=== PATIENT | male | born 1945 | race Two or more races ===

== ENCOUNTER 2021-11-11 19:41 | Inpatient (IN) | payer MEDICARE, OTHER ==
[~2021-11-11] VITALS: Ht 177.8 cm; Wt 88.6 kg
--- NOTE | 2021-11-11 19:55 | NUR ---
BETH Marroquin [place] [facility] [place] C/O INCREASED WEAKNESS X 1 DAY. PLACED ON BED, AWAKE ALERT RESPONDING TO VERBAL STIMULI, BREATHING EVEN AND UNLABORED SATURATING AT 96% RA.
--- NOTE | 2021-11-11 20:10 | NUR ---
BLOOD DRAWN AND SENT TO LAB
--- NOTE | 2021-11-11 20:13 | NUR ---
[facility]
[2021-11-11 20:52] LABS: BASOPHILS % (AUTO) 0.1 % (0.0-2.0); HEMATOCRIT 36 % (39-51); HEMOGLOBIN 12.4 g/dL (13.5-17.5); LYMPHOCYTES # (AUTO) 0.6 K/uL (0.8-4.8); LYMPHOCYTES % (AUTO) 2.6 % (20.0-44.0); MEAN CORPUSCULAR HGB CONC 34 g/dl (31.0-36.0); MEAN CORPUSCULAR VOLUME 89 fL (80-96); MONOCYTES # (AUTO) 2.2 K/uL (0.1-1.30); MONOCYTES % (AUTO) 10.1 % (2.0-12.0); NEUTROPHILS % (AUTO) 87.2 % (43.0-81.0); PLATELET COUNT (AUTO) 207 K/uL (150-450); RED BLOOD CELL COUNT(AUTO) 4.07 MIL/uL (4.5-6.0); WHITE BLOOD COUNT (AUTO) 21.8 K/uL (4.3-11.0)
--- NOTE | 2021-11-11 20:53 | NUR ---
SWAB FOR COVID19 AND URINE SAMPLE SENT TO LAB
[2021-11-11 21:23] LABS: ALANINE AMINOTRANSFERASE 701 U/L (12-78); ALBUMIN 3.1 g/dL (3.4-5.0); ALKALINE PHOSPHATASE 520 U/L (46-116); ASPARTATE AMINOTRANSFERASE 433 U/L (15-37); BILIRUBIN,DIRECT 2.6 mg/dL (0.0-0.2); BILIRUBIN,TOTAL 3.3 mg/dL (0.2-1.0); CALCIUM, SERUM 9.3 mg/dL (8.5-10.1); CARBON DIOXIDE 26 mmol/L (21-32); CHLORIDE 102 mmol/L (98-107); CREATININE 1.2 mg/dL (0.6-1.3); GLUCOSE 202 mg/dL (74-106); POTASSIUM 3.7 mmol/L (3.5-5.1); SODIUM SERUM 138 mmol/L (136-145); TOTAL PROTEIN, SERUM 7.6 g/dL (6.4-8.2); UREA NITROGEN, BLOOD 30 mg/dL (7-18)
[2021-11-11 21:25] LABS: SERUM AMMONIA 26 umol/L (11-32)
[2021-11-11 21:31] LABS: THYROID STIMULATING HORMONE 2.755 uIU/mL (0.358-3.74)
[2021-11-11] MEDS ORDERED: PIPERACILLIN /TAZOBACTAM 3.375 G VIAL IV ONE (21:59)
[2021-11-11] MEDS ORDERED: VANCOMYCIN 1 GM VIAL ONE (21:59)
[2021-11-11] MEDS ORDERED: PIPERACILLIN /TAZOBACTAM 3.375 G in IV D5W 50 ML IV ONE (22:00)
[2021-11-11] MEDS ORDERED: IV NS 0.9% 1,000 ML BAG IV ONE (22:00)
[2021-11-11] MEDS ORDERED: VANCOMYCIN 1 GM in IV D5W 250 ML IV ONE (22:00)
--- NOTE | 2021-11-11 22:06 | NUR ---
PATIENT TAKEN TO CT FOR ABDOMEN AND PELVIS VIA [facility]
[2021-11-11] MEDS ORDERED: ONDANSETRON HCL/PF 4 MG/2 ML VIAL IVP PRN (22:30)
[2021-11-11] MEDS ORDERED: Z GUARD REMEDY 4 OZ OINT TP PRN (22:30)
[2021-11-11] MEDS ORDERED: IV NS 0.9% 1,000 ML IV ONE (22:30)
[2021-11-11] MEDS ORDERED: MAGNESIUM HYDROXIDE 30 ML UDC PO PRN (22:30)
[2021-11-11] MEDS ORDERED: MAG HYDROX/AL HYDROX/SIMETH 30 ML UDC PO PRN (22:30)
[2021-11-11] MEDS ORDERED: ZOLPIDEM TARTRATE 5 MG TABLET PO PRN (22:30)
[2021-11-11] MEDS ORDERED: ACETAMINOPHEN 325 MG TABLET PO PRN (22:30)
[2021-11-11 22:41] LABS: BILIRUBIN,URINE SMALL (NEGATIVE); COLOR,URINE DARK YELLOW (YELLOW); LEUKOCYTE ESTERASE ,URINE LARGE (NEGATIVE); NITRITE, URINE NEGATIVE (NEGATIVE); PH,URINE 8.5 (5.0-8.0); PROTEIN,URINE >=300 mg/dl (NEGATIVE); UGLUCOSE NEGATIVE (NEGATIVE)
[2021-11-11] MEDS ORDERED: AMIO200T5 PO (23:02)
[2021-11-11] MEDS ORDERED: APIX5TAB PO (23:03)
[2021-11-11] MEDS ORDERED: HYDR-4076 PO (23:03)
[2021-11-11] MEDS ORDERED: AMLO-213 PO (23:03)
[2021-11-11] MEDS ORDERED: ATOR80TA PO (23:03)
[2021-11-11] MEDS ORDERED: FAMO20TA8 PO (23:03)
[2021-11-11] MEDS ORDERED: TAMS-12 PO (23:03)
--- NOTE | 2021-11-11 23:03 | NUR ---
MED RECON. DONE
[2021-11-11 23:27] LABS: BACTERIA,URINE Many /HPF (None Seen); RBC,URINE 0-2 /HPF (0-2); SQUAMOUS EPITHELIAL CELL,UR None Seen /HPF (None Seen)
[2021-11-11 23:28] LABS: CALCIUM PHOSPHATE CRYSTALS,UR Many /HPF (None Seen)
[2021-11-12] MEDS ORDERED: PIPERACILLIN /TAZOBACTAM 3.375 G VIAL IV ONE ×2 (03:58→04:00)
[2021-11-12] MEDS ORDERED: ZOSYN IVPB 3.375 G in IV D5W 50ml IV ONE (04:00)
[2021-11-12 05:31] LABS: BASOPHILS % (AUTO) 0.1 % (0.0-2.0); HEMATOCRIT 35 % (39-51); HEMOGLOBIN 11.9 g/dL (13.5-17.5); LYMPHOCYTES # (AUTO) 0.7 K/uL (0.8-4.8); LYMPHOCYTES % (AUTO) 3.1 % (20.0-44.0); MEAN CORPUSCULAR HGB CONC 34 g/dl (31.0-36.0); MEAN CORPUSCULAR VOLUME 90 fL (80-96); MONOCYTES # (AUTO) 2.3 K/uL (0.1-1.30); MONOCYTES % (AUTO) 10.3 % (2.0-12.0); NEUTROPHILS # (AUTO) 19.3 K/uL (1.8-8.9); NEUTROPHILS % (AUTO) 86.5 % (43.0-81.0); PLATELET COUNT (AUTO) 177 K/uL (150-450); RED BLOOD CELL COUNT(AUTO) 3.87 MIL/uL (4.5-6.0); WHITE BLOOD COUNT (AUTO) 22.3 K/uL (4.3-11.0)
[2021-11-12 05:49] LABS: CALCIUM, SERUM 8.8 mg/dL (8.5-10.1); CARBON DIOXIDE 28 mmol/L (21-32); CHLORIDE 104 mmol/L (98-107); CREATININE 1.2 mg/dL (0.6-1.3); GLUCOSE 174 mg/dL (74-106); PHOSPHORUS 2.6 mg/dL (2.5-4.9); POTASSIUM 3.4 mmol/L (3.5-5.1); SODIUM SERUM 139 mmol/L (136-145); UREA NITROGEN, BLOOD 28 mg/dL (7-18)
[2021-11-12] MEDS ORDERED: MULT-447 PO (07:43)
[2021-11-12] MEDS ORDERED: LOSA50TA39 PO (07:43)
[2021-11-12] MEDS ORDERED: CYAN-51 PO (07:43)
[2021-11-12] MEDS ORDERED: SENN-261 PO (07:43)
[2021-11-12] MEDS ORDERED: ONDANSETRON HCL/PF 4 MG/2 ML VIAL ONE (08:28)
--- NOTE | 2021-11-12 08:51 | NUR ---
ULTRASOUND AT BEDSIDE
[2021-11-12] MEDS ORDERED: ATORVASTATIN 40 MG TABLET PO SCH (09:00)
[2021-11-12] MEDS ORDERED: AMIODARONE HCL 200 MG TABLET PO SCH (09:00)
[2021-11-12] MEDS ORDERED: APIXABAN 5 MG TABLET PO SCH (09:00)
[2021-11-12] MEDS ORDERED: hydrALAZINE HCL 50 MG TABLET ONE (09:08)
[2021-11-12] MEDS ORDERED: AMLODIPINE BESYLATE 10 MG TABLET ONE (09:09)
[2021-11-12] MEDS ORDERED: TAMSULOSIN 0.4 MG CAP.SR.24H ONE (09:09)
[2021-11-12] MEDS ORDERED: FAMOTIDINE (20 MG) 20 MG TABLET ONE (09:09)
--- NOTE | 2021-11-12 09:20 | NUR ---
PT IS TO BE NPO AND MORPHINE WITHHELD. PT IS ALLOWED PO MEDICATIONS PER MD ORDERS.
[2021-11-12] MEDS: TAMSULOSIN 0.4 MG CAP.SR.24H PO SCH (09:32)
[2021-11-12] MEDS: hydrALAZINE HCL 25 MG TABLET PO SCH ×3 (09:32→17:00)
[2021-11-12] MEDS: FAMOTIDINE (20 MG) 20 MG TABLET PO SCH ×2 (09:32→17:00)
[2021-11-12] MEDS: AMLODIPINE BESYLATE 10 MG TABLET PO SCH (09:32)
[2021-11-12] MEDS ORDERED: POTASSIUM CL. PREMIX PERIPHER. 100 ML ONE (10:04)
[2021-11-12] MEDS: POTASSIUM CL. PREMIX PERIPHER. 50 ML IV SCH ×2 (10:11→11:00)
[2021-11-12] MEDS: PIPERACILLIN /TAZOBACTAM 3.375 G in IV D5W 100 ML IV SCH ×2 (10:11→18:01)
[2021-11-12] MEDS ORDERED: MAGNESIUM OXIDE 400 MG TABLET PO ONE (11:00)
--- NOTE | 2021-11-12 11:47 | NUR ---
room [id number]
[2021-11-12] MEDS ORDERED: PIPERACILLIN /TAZOBACTAM 3.375 G in IV D5W 50 ML IV SCH (12:00)
--- NOTE | 2021-11-12 12:11 | NUR ---
REPORT GIVEN TO BILL WALTON FOR SOPHIA
--- NOTE | 2021-11-12 13:00 | NUR ---
RN ADMITTING NOTE ADMITTED THIS 76 Y/O MALE PATIENT FROM E.. TRANSPORTED VIA [facility] @1250, ACCOMPANIED BY ER STAFF. WITH ADMITTING DIAGNOSIS OF CHOLECYSTITIS/UTI. PATIENT IS ALERT AND ORIENTED X4, VERBALLY RESPONSIVE. NO SIGNS OF ACUTE DISTRESS NOTED. ON ROOM AIR, TOLERATING WELL. NO SOB NOTED, BREATHING EVEN AND UNLABORED. NOTED WITH IV ACCESS ON RIGHT HAND #18G AND LEFT HAND #20G, INTACT AND PATENT, FLUSHES WELL. SALINE LOCKED. PATIENT ORIENTED TO ROOM AND ROOMMATE. WITH F/C INTACT, DRAINING TEA COLORED URINE. BODY ASSESSMENT DONE, SKIN GENERALLY INTACT. NOTED WITH MULTIPLE SCATTERED SCAR/SCAB ON BOTH LOWER EXTREMITIES. ALSO NOTED WITH RIGHT CHIN LUMP/MASS, WITHOUT ANY PAIN. ROUTINE ADMISSION CARE RENDERED. PATIENT ON NPO. SAFETY MEASURE IN PLACE. BED IN LOWEST AND LOCKED POSITION, SIDE RAILS UP X2, CALL LIGHT PLACED WITHIN EASY REACH. WILL CONTINUE TO MONITOR PATIENT.
[2021-11-12 16:00] VITALS: BP 117/56
[2021-11-12] MEDS: MORPHINE SULFATE INJ 2 MG/ML DISP.SYRIN IV PRN (18:02)
--- NOTE | 2021-11-12 19:15 | NUR ---
RN CLOSING NOTES PATIENT IN BED, AWAKE. NO SIGNS OF ACUTE DISTRESS NOTED. REMAINS ON NPO, PENDING HIDA SCAN. COMFORT AND SAFETY MEASURE IN PLACE. BED IN LOWEST AND LOCKED POSITION, SIDE RAILS UP X2, CALL LIGHT PLACED WITHIN EASY REACH. WILL CONTINUE TO MONITOR PATIENT. ENDORSED TO NEXT SHIFT.
--- NOTE | 2021-11-12 19:33 | NUR ---
RN OPENING NOTE PATIENT IN BED, EYES CLOSED. EASILY AWAKENED WITH VERBAL AND TOUCH STIMULI. A/O X 3. PATIENT IS ON RA, TOLERATING WELL WITH NO SOB OR RESPIRATORY DISTRESS. PATIENT HAS A GARCÍA CATHETER IN PLACE DRAINING VIA GRAVITY. PATIENT IS CURRENTLY NPO, PENDING HIDA SCAN. NO REPORTS OF PAIN AT THIS TIME. PER RN BILL, THEY WILL DO HIDA SCAN AT AROUND 2100. PATIENT HAS A R HAND AND A L HAND 20 G WITH IV ABX AT THIS TIME. SAFETY MEASURES IN PLACE: BED LOCKED AND IN LOWEST POSITION, CALL LIGHT WITHIN REACH, SIDE RAILS UP. WILL MONITOR PATIENT CLOSELY.
[2021-11-12 20:00] VITALS: BP 120/60
--- NOTE | 2021-11-12 21:10 | NUR ---
PATIENT TAKEN DOWN TO NUCLEAR MED FOR HIDA SCAN
--- NOTE | 2021-11-12 22:03 | NUR ---
NM:BRIAN SCAN WAS COMPLETED:TECH:RB.
--- NOTE | 2021-11-12 23:44 | NUR ---
PATIENT BACK TO ROOM FROM HIDA SCAN, VS: 02 95% ON RA, 127/61, HR 80, RESP 19, TEMP 97.2
[2021-11-12 23:56] VITALS: BP 127/61
[2021-11-13] MEDS: PIPERACILLIN /TAZOBACTAM 3.375 G in IV D5W 100 ML IV SCH ×3 (01:07→18:54)
--- NOTE | 2021-11-13 06:50 | NUR ---
RN CLOSING NOTE PATIENT IN BED, EYES CLOSED. EASILY AWAKENED WITH VERBAL AND TOUCH STIMULI. A/O X 2-3. PATIENT IS ON RA, TOLERATING WELL WITH NO SOB OR RESPIRATORY DISTRESS. PATIENT HAS A GARCÍA CATHETER IN PLACE DRAINING VIA GRAVITY. PATIENT IS CURRENTLY NPO, PENDING HIDA SCAN RESULT AND POSS. PROCEDURE. NO REPORTS OF PAIN AT THIS TIME. PATIENT HAS A R HAND AND A L HAND 20 G, SALINE LOCK, BOTH PATENT AND INTACT. WOUND CONSULT ORDERED FOR SKIN ISSUES FOUND. SAFETY MEASURES IN PLACE: BED LOCKED AND IN LOWEST POSITION, CALL LIGHT WITHIN REACH, SIDE RAILS UP. ALL NEEDS MET AND ATTENDED. ALL ORDERS CARRIED OUT. WILL ENDORSE TO DAY SHIFT NURSE FOR SOPHIA.
[2021-11-13 07:24] LABS: HEMATOCRIT 32 % (39-51); LYMPHOCYTES # (AUTO) 0.7 K/uL (0.8-4.8); LYMPHOCYTES % (AUTO) 3.8 % (20.0-44.0); MEAN CORPUSCULAR HGB CONC 34 g/dl (31.0-36.0); MEAN CORPUSCULAR VOLUME 90 fL (80-96); MONOCYTES # (AUTO) 1.9 K/uL (0.1-1.30); MONOCYTES % (AUTO) 9.7 % (2.0-12.0); NEUTROPHILS # (AUTO) 16.7 K/uL (1.8-8.9); NEUTROPHILS % (AUTO) 86.5 % (43.0-81.0); PLATELET COUNT (AUTO) 179 K/uL (150-450); RED BLOOD CELL COUNT(AUTO) 3.56 MIL/uL (4.5-6.0); WHITE BLOOD COUNT (AUTO) 19.3 K/uL (4.3-11.0)
--- NOTE | 2021-11-13 07:30 | NUR ---
MS RN OPENING NOTES RECEIVED PATIENT IN BED, EYES CLOSED, A/O 2-3. HE IS EASILY TO AROUSE AND WAKE UP WITH VERBAL AND TOUCH STIMULI. A/O X 2-3. IN ROOM AIR, AND HE CAN TOLERATE IT WELL WITH NO RESPIRATORY DISTRESS AND SOB. IV ACCESS IN R HAND AND A L HAND 20 G, SL, BOTH PATENT AND INTACT. PATIENT HAS A GARCÍA CATHETER IN PLACE DRAINING VIA GRAVITY. PATIENT IS IN NPO, AND WAITING FOR THE HIDA SCAN RESULTS AND POSS. PROCEDURE. PAIN LEVEL 0/10 AT THIS TIME. WOUND CONSULT ORDERED FOR SKIN ISSUES FOUND ON HIS SACRAL (DISCOLORATION). SAFETY MEASURES IN PLACE: BED LOCKED AND IN LOWEST POSITION, CALL LIGHT WITHIN REACH, SIDE RAILS UP. WILL CONTINUE TO MONITOR FOR SOPHIA
[2021-11-13 07:37] LABS: ALANINE AMINOTRANSFERASE 402 U/L (12-78); ALBUMIN 2.4 g/dL (3.4-5.0); ALKALINE PHOSPHATASE 446 U/L (46-116); ASPARTATE AMINOTRANSFERASE 174 U/L (15-37); BILIRUBIN,TOTAL 2.3 mg/dL (0.2-1.0); CALCIUM, SERUM 8.8 mg/dL (8.5-10.1); CARBON DIOXIDE 26 mmol/L (21-32); CHLORIDE 105 mmol/L (98-107); CREATININE 1.2 mg/dL (0.6-1.3); GLUCOSE 130 mg/dL (74-106); MAGNESIUM 2.2 mg/dL (1.8-2.4); PHOSPHORUS 2.3 mg/dL (2.5-4.9); POTASSIUM 3.5 mmol/L (3.5-5.1); SODIUM SERUM 138 mmol/L (136-145); TOTAL PROTEIN, SERUM 6.4 g/dL (6.4-8.2); UREA NITROGEN, BLOOD 33 mg/dL (7-18)
[2021-11-13 08:00] VITALS: BP 108/56
[2021-11-13] MEDS: AMLODIPINE BESYLATE 10 MG TABLET PO SCH (09:00)
[2021-11-13] MEDS: FAMOTIDINE (20 MG) 20 MG TABLET PO SCH ×2 (09:00→16:33)
[2021-11-13] MEDS: TAMSULOSIN 0.4 MG CAP.SR.24H PO SCH (09:00)
[2021-11-13] MEDS: hydrALAZINE HCL 25 MG TABLET PO SCH ×3 (09:00→16:33)
[2021-11-13] MEDS: MORPHINE SULFATE INJ 2 MG/ML DISP.SYRIN IV PRN (09:38)
[2021-11-13 16:14] VITALS: BP 127/57
[2021-11-13] MEDS ORDERED: Sodium Phosphate 30 MMOL in IV NS 0.9% 250 ML IV SCH (17:00)
--- NOTE | 2021-11-13 18:22 | NUR ---
MS RN CLOSING NOTES PATIENT LYING COMFORTABLY IN BED, A/O 2-3; EASILY TO AROUSE AND WAKE UP WITH VERBAL AND TOUCH STIMULI. IN ROOM AIR, AND HE CAN TOLERATE IT WELL WITH NO RESPIRATORY DISTRESS AND SOB. IV ACCESS IN R HAND AND A L HAND 20 G, SL, BOTH PATENT AND INTACT. PATIENT HAS A GARCÍA CATHETER IN PLACE DRAINING VIA GRAVITY. PATIENT IS IN NPO, AND WAITING FOR POSSIBLE PROCEDURE. PAIN LEVEL 0/10 AT THIS TIME. WOUND CONSULT ORDERED FOR SKIN ISSUES FOUND ON HIS SACRAL AND BILATERAL LEGS (DISCOLORATION). SAFETY MEASURES IN PLACE: BED LOCKED AND IN LOWEST POSITION, CALL LIGHT WITHIN REACH, SIDE RAILS UP. WILL ENDORSE TO INCOMING SHIFT FOR SOPHIA
--- NOTE | 2021-11-13 19:14 | NUR ---
MS RN OPENING NOTES PATIENT LYING COMFORTABLY IN BED, A/O 2-3; EASILY TO AROUSE AND WAKE UP WITH VERBAL AND TOUCH STIMULI. IN ROOM AIR, AND HE CAN TOLERATE IT WELL WITH NO RESPIRATORY DISTRESS AND SOB. PATIENT HAS A GARCÍA CATHETER IN PLACE DRAINING VIA GRAVITY. PATIENT IS IN NPO, AND WAITING FOR POSSIBLE PROCEDURE. PAIN LEVEL 0/10 AT THIS TIME. SAFETY MEASURES IN PLACE: BED LOCKED AND IN LOWEST POSITION, CALL LIGHT WITHIN REACH, SIDE RAILS UP. WILL CONTINUE TO MONITOR.
[2021-11-13 20:00] VITALS: BP 119/67
[2021-11-14] MEDS: PIPERACILLIN /TAZOBACTAM 3.375 G in IV D5W 100 ML IV SCH ×3 (02:27→17:18)
[2021-11-14 06:43] LABS: BASOPHILS % (AUTO) 0.1 % (0.0-2.0); EOSINOPHILS % (AUTO) 0.1 % (0.0-6.0); HEMATOCRIT 31 % (39-51); HEMOGLOBIN 10.5 g/dL (13.5-17.5); LYMPHOCYTES # (AUTO) 0.7 K/uL (0.8-4.8); LYMPHOCYTES % (AUTO) 4.9 % (20.0-44.0); MEAN CORPUSCULAR HGB CONC 34 g/dl (31.0-36.0); MEAN CORPUSCULAR VOLUME 90 fL (80-96); MONOCYTES # (AUTO) 1.6 K/uL (0.1-1.30); MONOCYTES % (AUTO) 11.5 % (2.0-12.0); NEUTROPHILS # (AUTO) 11.9 K/uL (1.8-8.9); NEUTROPHILS % (AUTO) 83.4 % (43.0-81.0); PLATELET COUNT (AUTO) 187 K/uL (150-450); RED BLOOD CELL COUNT(AUTO) 3.45 MIL/uL (4.5-6.0); WHITE BLOOD COUNT (AUTO) 14.2 K/uL (4.3-11.0)
--- NOTE | 2021-11-14 06:50 | NUR ---
MS RN CLOSING NOTES PATIENT LYING COMFORTABLY IN BED, A/O 2-3; EASILY TO AROUSE AND WAKE UP WITH VERBAL AND TOUCH STIMULI. IN ROOM AIR, AND HE CAN TOLERATE IT WELL WITH NO RESPIRATORY DISTRESS AND SOB. PATIENT HAS A GARCÍA CATHETER IN PLACE DRAINING VIA GRAVITY WITH 500 CC OUTPUT. PATIENT IS IN NPO, AND WAITING FOR POSSIBLE PROCEDURE. PAIN LEVEL 0/10 AT THIS TIME. SAFETY MEASURES IN PLACE: BED LOCKED AND IN LOWEST POSITION, CALL LIGHT WITHIN REACH, SIDE RAILS UP. WILL ENDORSE CARE TO DAY SHIFT NURSE FOR SOPHIA
--- NOTE | 2021-11-14 07:24 | NUR ---
WOUND CARE CONSULT: PT PRESENTS WITH RT ANKLE SCAR, SACRAL SCARRING WHICH EXTENDS TO BUTTOCKS AND MULTIPLE AREAS OF DISCOLORATION/SCARRING TO LOWER LEGS, ALL PRESENT ON ADMISSION. RECOMMENDATIONS MADE FOR SKIN PROTECTION. DISCUSSED WITH NURSING STAFF. Judy Daniels IN AGREEMENT WITH PLAN OF CAR. PT HAS GARCÍA CATH.
--- NOTE | 2021-11-14 07:25 | NUR ---
RN OPENING NOTES RECEIVED PATIENT IN BED, AWAKE, A/O X3-4, VERBALLY RESPONSIVE. NO SIGNS OF ACUTE DISTRESS NOTED. STABLE ON ROOM AIR, BREATHING EVEN AND UNLABORED. WUTH IV ACCESS ON RIGHT AND LEFT HAND INTACT, SALINE LOCKED. DENIES ANY PAIN AT THIS TIME. REMAINS ON NPO. SAFETY MEASURE IN PLACE. WILL CONTINUE TO MONITOR PATIENT.
[2021-11-14 07:47] LABS: CALCIUM, SERUM 8.9 mg/dL (8.5-10.1); CARBON DIOXIDE 24 mmol/L (21-32); CHLORIDE 109 mmol/L (98-107); CREATININE 1.2 mg/dL (0.6-1.3); GLUCOSE 102 mg/dL (74-106); PHOSPHORUS 3.3 mg/dL (2.5-4.9); POTASSIUM 3.2 mmol/L (3.5-5.1); SODIUM SERUM 143 mmol/L (136-145); UREA NITROGEN, BLOOD 35 mg/dL (7-18)
[2021-11-14 08:46] LABS: ALBUMIN 2.1 g/dL (3.4-5.0); BILIRUBIN,DIRECT 0.9 mg/dL (0.0-0.2); BILIRUBIN,TOTAL 1.5 mg/dL (0.2-1.0); TOTAL PROTEIN, SERUM 6.2 g/dL (6.4-8.2)
[2021-11-14] MEDS: FAMOTIDINE (20 MG) 20 MG TABLET PO SCH ×2 (08:49→16:25)
[2021-11-14] MEDS: AMLODIPINE BESYLATE 10 MG TABLET PO SCH (08:49)
[2021-11-14] MEDS: hydrALAZINE HCL 25 MG TABLET PO SCH ×3 (08:49→16:26)
[2021-11-14] MEDS: TAMSULOSIN 0.4 MG CAP.SR.24H PO SCH (08:49)
[2021-11-14] MEDS: POTASSIUM CL. PREMIX PERIPHER. 50 ML IV SCH ×4 (09:27→13:00)
--- NOTE | 2021-11-14 18:50 | NUR ---
RN CLOSING NOTES PATIENT IN BED, AWAKE, NO SIGNS OF ACUTE DISTRESS NOTED. REMAINS STABLE IN ROOM AIR. BREATHING EVEN AND UNLABORED, NO SOB NOTED. REMAINS ON NPO. AWAITING SURGICAL CONSULT RECOMMENDATION FROM DR. EDWARD. IV ACCESS ON LEFT AND RIGHT HAND INTACT AND PATENT, SALINE LOCKED. SAFETY MEASURE IN PLACE, BED IN LOWEST AND LOCKED POSITION, SIDE RAILS UP X2, CALL LIGHT PLACED WITHIN EASY REACH. WILL ENDORSE TO NEXT SHIFT.
--- NOTE | 2021-11-14 19:45 | NUR ---
MS RN OPENING NOTE PATIENT AWAKE IN BED, ALERT/ORIENTED X 3, PT ABLE TO MAKE NEEDS KNOWN. PT STABLE ON RA, NO S/S OF DISTRESS OR SOB NOTED, BREATHING EVEN AND UNLABORED. GARCÍA CATH IN PLACE AND DRAINING YELLOW URINE. PATIENT REMAINS NPO, AWAITING SURGICAL RECOMMENDATIONS FROM DR. EDWARD. IV ACCESS ON LEFT AND RIGHT HAND INTACT AND SALINE LOCKED. SAFETY MEASURES IN PLACE: CALL LIGHT WITHIN REACH, SIDE RAILS UP X 2, BED LOCKED IN LOWEST POSITION, BED ALARM ON. WILL CONTINUE TO MONITOR PATIENT
[2021-11-14 20:00] VITALS: BP 126/57
[2021-11-15] MEDS: PIPERACILLIN /TAZOBACTAM 3.375 G in IV D5W 100 ML IV SCH ×3 (02:10→17:48)
[2021-11-15 07:06] LABS: BASOPHILS % (AUTO) 0.1 % (0.0-2.0); EOSINOPHILS % (AUTO) 0.4 % (0.0-6.0); HEMATOCRIT 31 % (39-51); HEMOGLOBIN 10.6 g/dL (13.5-17.5); LYMPHOCYTES # (AUTO) 0.8 K/uL (0.8-4.8); LYMPHOCYTES % (AUTO) 5.7 % (20.0-44.0); MEAN CORPUSCULAR HGB CONC 34 g/dl (31.0-36.0); MEAN CORPUSCULAR VOLUME 90 fL (80-96); MONOCYTES # (AUTO) 1.2 K/uL (0.1-1.30); MONOCYTES % (AUTO) 8.7 % (2.0-12.0); NEUTROPHILS # (AUTO) 11.4 K/uL (1.8-8.9); NEUTROPHILS % (AUTO) 85.1 % (43.0-81.0); PLATELET COUNT (AUTO) 208 K/uL (150-450); RED BLOOD CELL COUNT(AUTO) 3.43 MIL/uL (4.5-6.0); WHITE BLOOD COUNT (AUTO) 13.4 K/uL (4.3-11.0)
[2021-11-15 07:21] LABS: CALCIUM, SERUM 8.7 mg/dL (8.5-10.1); CREATININE 1.1 mg/dL (0.6-1.3); POTASSIUM 3.3 mmol/L (3.5-5.1)
--- NOTE | 2021-11-15 07:30 | NUR ---
MS RN OPENING NOTE RECEIVED PATIENT AWAKE IN BED, A/OX 3, PATIENT IS ABLE TO MAKE NEEDS KNOWN. PATIENT IS STABLE ON RA, NO S/S OF DISTRESS OR SOB NOTED, BREATHING EVEN AND UNLABORED. GARCÍA CATH IN PLACE AND DRAINING YELLOW URINE. NPO, AWAITING SURGICAL RECOMMENDATIONS FROM DR. EDWARD. IV ACCESS ON LEFT AND RIGHT HAND INTACT AND SALINE LOCKED. DR MCCARTY VISUTED THE PATIENT. ALL SAFETY MEASURES IN PLACE: CALL LIGHT WITHIN REACH, SIDE RAILS UP X 2, BED LOCKED IN LOWEST POSITION, BED ALARM ON. WILL CONTINUE TO MONITOR PATIENT
--- NOTE | 2021-11-15 07:32 | NUR ---
MS RN CLOSING NOTE PATIENT AWAKE IN BED, ALERT/ORIENTED X 3 WITH FORGETFULNESS, PT ABLE TO MAKE NEEDS KNOWN. PT STABLE ON RA, NO S/S OF DISTRESS OR SOB NOTED, BREATHING EVEN AND UNLABORED. GARCÍA CATH IN PLACE AND DRAINING YELLOW URINE. PATIENT REMAINED NPO, AWAITING SURGICAL RECOMMENDATIONS FROM DR. EDWARD. IV ACCESS ON LEFT AND RIGHT HAND INTACT AND SALINE LOCKED. MEDICATIONS GIVEN ORDERED, PT NEEDS MET THROUGHOUT SHIFT. SAFETY MEASURES IN PLACE: CALL LIGHT WITHIN REACH, SIDE RAILS UP X 2, BED LOCKED IN LOWEST POSITION, BED ALARM ON.ENDORSED TO DAY SHIFT NURSE FOR CONTINUITY OF CARE
[2021-11-15] MEDS: TAMSULOSIN 0.4 MG CAP.SR.24H PO SCH (09:13)
[2021-11-15] MEDS: hydrALAZINE HCL 25 MG TABLET PO SCH ×3 (09:14→17:40)
[2021-11-15] MEDS: AMLODIPINE BESYLATE 10 MG TABLET PO SCH (09:14)
[2021-11-15] MEDS: FAMOTIDINE (20 MG) 20 MG TABLET PO SCH ×2 (09:14→17:40)
[2021-11-15] MEDS: POTASSIUM CL. PREMIX PERIPHER. 50 ML IV SCH ×2 (09:54→11:51)
[2021-11-15 14:08] LABS: LYMPHOCYTES % (MANUAL) 8 % (16-48); MONOCYTES % (MANUAL) 9 % (0-11.0); NEUTROPHILS % (MANUAL) 83 (42-76)
[2021-11-15] MEDS ORDERED: ANESTHESIA TRAY IN PYXIS 1 EA TRAY MC ONE (17:49)
--- NOTE | 2021-11-15 18:47 | NUR ---
MS RN CLOSING NOTE PATIENT AWAKE IN BED, A/OX 3, PATIENT IS ABLE TO MAKE NEEDS KNOWN. PATIENT IS STABLE ON RA, NO S/S OF DISTRESS OR SOB NOTED, BREATHING EVEN AND UNLABORED. GARCÍA CATH IN PLACE AND DRAINING YELLOW URINE. NPO, PATIENT WILL HAVE LAPAROSCOPIC CHOLESYSTECTOMY TOMORROW. ALL CONSENTS SIGNED. IV ACCESS ON LEFT AND RIGHT HAND INTACT AND SALINE LOCKED. ALL DUE MEDS GIVEN ORDERED. ALL SAFETY MEASURES IN PLACE: CALL LIGHT WITHIN REACH, SIDE RAILS UP X 2, BED LOCKED IN LOWEST POSITION, BED ALARM ON. WILL ENDORSE FOR SOPHIA.
--- NOTE | 2021-11-15 19:32 | NUR ---
MS RN OPENING NOTE PATIENT AWAKE IN BED, ALERT/ORIENTED X 3, PT ABLE TO MAKE NEEDS KNOWN. PT STABLE ON RA, NO S/S OF DISTRESS OR SOB NOTED, BREATHING EVEN AND UNLABORED. GARCÍA CATH IN PLACE AND DRAINING YELLOW URINE. PATIENT REMAINS NPO, WILL HAVE LAPAROSCOPY CHOLECYSTECTOMY TOMORROW. IV ACCESS ON LEFT AND RIGHT HAND INTACT AND SALINE LOCKED. SAFETY MEASURES IN PLACE: CALL LIGHT WITHIN REACH, SIDE RAILS UP X 2, BED LOCKED IN LOWEST POSITION, BED ALARM ON. WILL CONTINUE TO MONITOR PATIENT
[2021-11-15 20:00] VITALS: BP 134/54
[2021-11-16] MEDS: PIPERACILLIN /TAZOBACTAM 3.375 G in IV D5W 100 ML IV SCH ×3 (01:52→17:18)
[2021-11-16 06:51] LABS: BASOPHILS % (AUTO) 0.1 % (0.0-2.0); EOSINOPHILS % (AUTO) 0.5 % (0.0-6.0); HEMATOCRIT 32 % (39-51); HEMOGLOBIN 11.1 g/dL (13.5-17.5); LYMPHOCYTES # (AUTO) 0.9 K/uL (0.8-4.8); LYMPHOCYTES % (AUTO) 4.9 % (20.0-44.0); MEAN CORPUSCULAR HGB CONC 35 g/dl (31.0-36.0); MEAN CORPUSCULAR VOLUME 89 fL (80-96); MONOCYTES # (AUTO) 1.5 K/uL (0.1-1.30); MONOCYTES % (AUTO) 8.5 % (2.0-12.0); NEUTROPHILS # (AUTO) 15.3 K/uL (1.8-8.9); PLATELET COUNT (AUTO) 199 K/uL (150-450); WHITE BLOOD COUNT (AUTO) 17.8 K/uL (4.3-11.0)
--- NOTE | 2021-11-16 07:26 | NUR ---
MS RN CLOSING NOTE PATIENT SLEEPING IN BED, ALERT/ORIENTED X 3 WITH FORGETFULNESS AND APHASIA, PT ABLE TO MAKE NEEDS KNOWN. PT STABLE ON RA, NO S/S OF DISTRESS OR SOB NOTED, BREATHING EVEN AND UNLABORED. GARCÍA CATH IN PLACE AND DRAINING CRISTA URINE. PATIENT REMAINED NPO, PATIENT HAVING SURGERY TODAY. IV ACCESS ON LEFT AND RIGHT HAND INTACT AND SALINE LOCKED. MEDICATIONS GIVEN ORDERED, PT NEEDS MET THROUGHOUT SHIFT. SAFETY MEASURES IN PLACE: CALL LIGHT WITHIN REACH, SIDE RAILS UP X 2, BED LOCKED IN LOWEST POSITION, BED ALARM ON. ENDORSED TO DAY SHIFT NURSE FOR CONTINUITY OF CARE
--- NOTE | 2021-11-16 07:28 | NUR ---
RN OPENING NOTES RECEIVED PATIENT SLEEPING COMFORTABLY IN BED, EASILY AROUSED, VERBALLY RESPONSIVE. NO SIGNS OF ACUTE DISTRESS NOTED. STABLE ON ROOM AIR, NO SOB NOTED, BREATHING EVEN AND UNLABORED. WITH IV ACCESS ON RIGHT AND LEFT HAND INTACT, SALINE LOCKED. DENIES ANY PAIN AT THIS TIME. F/C INTACT DRAINING CRISTA COLORED URINE. REMAINS ON NPO, FOR SCHEDULE SURGERY TODAY. SAFETY MEASURE IN PLACE. BED IN LOWEST AND LOCKED POSITION, SIDE RAILS UP,CALL LIGHT PLACED WITHIN EASY REACH. WILL CONTINUE TO MONITOR PATIENT.
[2021-11-16 07:48] LABS: CALCIUM, SERUM 8.5 mg/dL (8.5-10.1); POTASSIUM 3.2 mmol/L (3.5-5.1)
[2021-11-16] MEDS: AMLODIPINE BESYLATE 10 MG TABLET PO SCH (09:00)
[2021-11-16] MEDS: hydrALAZINE HCL 25 MG TABLET PO SCH ×3 (09:00→17:00)
[2021-11-16] MEDS: FAMOTIDINE (20 MG) 20 MG TABLET PO SCH ×2 (09:00→16:23)
[2021-11-16] MEDS: TAMSULOSIN 0.4 MG CAP.SR.24H PO SCH (09:00)
[2021-11-16 09:19] LABS: BAND % (MANUAL) 1 % (0.0-5.0); EOSINOPHILS % (MANUAL) 2 % (0-4); LYMPHOCYTES % (MANUAL) 5 % (16-48); MONOCYTES % (MANUAL) 3 % (0-11.0); NEUTROPHILS % (MANUAL) 86 (42-76)
[2021-11-16 09:20] LABS: METAMYELOCYTES % 2 % (0-0); MYELOCYTES % 1 % (0-0)
[2021-11-16] MEDS: POTASSIUM CL. PREMIX PERIPHER. 50 ML IV SCH ×4 (09:30→17:33)
[2021-11-16] MEDS ORDERED: BUPIVACAINE 0.5 % PF 150 MG/30 ML VIAL ONE (10:36)
[2021-11-16] MEDS ORDERED: BUPIVACAINE 0.25% 75 MG/30 ML VIAL ONE (10:37)
--- NOTE | 2021-11-16 11:55 | NUR ---
RN NOTES PATIENT WAS PICKED UP BY OR STAFF RUFUS VIA BED FOR [facility].
[2021-11-16] MEDS ORDERED: HYDROMORPHONE INJ 2 MG/ML DISP.SYRIN ONE (12:30)
[2021-11-16] MEDS ORDERED: MIDAZOLAM HCL 2 MG/2ML VIAL ONE (12:30)
[2021-11-16] MEDS ORDERED: FENTANYL PF 250MCG/5ML AMPUL ONE (12:30)
[2021-11-16] MEDS ORDERED: ROCURONIUM BROMIDE 50 MG/5 ML ONE (12:31)
[2021-11-16] MEDS ORDERED: FAMOTIDINE/PF INJ 20 MG/2 ML VIAL IV ONE (12:31)
[2021-11-16] MEDS ORDERED: GLYCOPYRROLATE 0.2 MG/ML VIAL ONE (12:42)
[2021-11-16] MEDS ORDERED: MORPHINE SULFATE INJ 2 MG/ML DISP.SYRIN IV PRN (15:00)
[2021-11-16 15:35] VITALS: BP 98/54
--- NOTE | 2021-11-16 15:35 | NUR ---
RN NOTES PT BACK FROM RECOVERY ROOM, ACCOMPANIED BY ANTON HERNÁNDEZ. PATIENT AWAKE, ALERT AND VERBALLY RESPONSIVE. NO SIGNS OF ACUTE DISTRESS. NOTED PATIENT WITH DRESSING ON ABDOMINAL AREA AND JAIMIE DRAIN WITH SANGUINEOUS OUTPUT. NOTED RIGHT HAND IV LINE OUT AND LEFT HAND INFILTRATED. REMOVED LINE. NEW PERIPHERAL LINE INSERTED ON RIGHT FORE ARM #20G, WITH GOOD BLOOD RETURN, COVERED WITH TRANSPARENT DRESSING. VITAL SIGNS TAKEN. WILL CONTINUE TO MONITOR PATIENT.
[2021-11-16 15:50] VITALS: BP 95/50
[2021-11-16 16:05] VITALS: BP 83/46
[2021-11-16 16:20] VITALS: BP 101/46
--- NOTE | 2021-11-16 18:56 | NUR ---
RN CLOSING NOTES PATIENT RESTING COMFORTABLY IN BED, NO SIGNS OF ACUTE DISTRESS NOTED. CURRENTLY ON O2 @ 2LPM VIA N/C, SPO2@96%, BREATHING EVEN AND UNLABORED, NO SOB NOTED. WITH IV ACCESS ON LEFT AND RIGHT HAND INTACT AND PATENT, SALINE LOCKED. JAIMIE DRAIN ON ABDOMINAL AREA NOTED WITH SANGUINEOUS OUTPUT WITH DRESSING C/D/I. F/C INTACT TO DRAINAGE BAG VIA GRAVITY WITH CRISTA COLORED URINE. SAFETY MEASURE IN PLACE, BED IN LOWEST AND LOCKED POSITION, SIDE RAILS UP X2, CALL LIGHT PLACED WITHIN EASY REACH. WILL ENDORSE TO NEXT SHIFT.
--- NOTE | 2021-11-16 19:22 | NUR ---
RN OPENING NOTES RECEIVED PATIENT RESTING COMFORTABLY IN BED, NO SIGNS OF ACUTE DISTRESS NOTED. CURRENTLY ON O2 @ 2LPM VIA N/C, SPO2@98%, BREATHING EVEN AND UNLABORED, NO SOB/DISTRESS NOTED.WITH IV ACCESS ON LEFT AND RIGHT HAND INTACT AND PATENT, SALINE LOCKED. JAIMIE DRAIN ON ABDOMINAL AREA NOTED WITH SANGUINEOUS OUTPUT WITH DRESSING INTACT. F/C INTACT TO DRAINAGE BAG VIA GRAVITY WITH CRISTA COLORED URINE. SAFETY MEASURE IN PLACE, BED IN LOWEST AND LOCKED POSITION, SIDE RAILS UP X2, CALL LIGHT PLACED WITHIN EASY REACH. WILL CONTINUE TO MONITOR.
[2021-11-16 20:00] VITALS: BP 108/54
[2021-11-17] MEDS: PIPERACILLIN /TAZOBACTAM 3.375 G in IV D5W 100 ML IV SCH ×3 (01:08→17:17)
[2021-11-17 06:33] LABS: BASOPHILS % (AUTO) 0.1 % (0.0-2.0); HEMATOCRIT 30 % (39-51); HEMOGLOBIN 10.2 g/dL (13.5-17.5); LYMPHOCYTES # (AUTO) 0.6 K/uL (0.8-4.8); LYMPHOCYTES % (AUTO) 3.3 % (20.0-44.0); MEAN CORPUSCULAR HGB CONC 34 g/dl (31.0-36.0); MEAN CORPUSCULAR VOLUME 90 fL (80-96); MONOCYTES # (AUTO) 0.9 K/uL (0.1-1.30); MONOCYTES % (AUTO) 4.9 % (2.0-12.0); NEUTROPHILS # (AUTO) 17.5 K/uL (1.8-8.9); NEUTROPHILS % (AUTO) 91.7 % (43.0-81.0); PLATELET COUNT (AUTO) 202 K/uL (150-450); RED BLOOD CELL COUNT(AUTO) 3.31 MIL/uL (4.5-6.0); WHITE BLOOD COUNT (AUTO) 19.1 K/uL (4.3-11.0)
--- NOTE | 2021-11-17 06:53 | NUR ---
RN CLOSING NOTES PATIENT RESTING COMFORTABLY IN BED, NO SIGNS OF ACUTE DISTRESS NOTED. CURRENTLY ON O2 @ 2LPM VIA N/C, SPO2@97%, BREATHING EVEN AND UNLABORED, NO SOB/DISTRESS NOTED.WITH IV ACCESS ON LEFT AND RIGHT HAND INTACT AND PATENT, SALINE LOCKED. JAIMIE DRAIN ON ABDOMINAL AREA NOTED WITH SANGUINEOUS OUTPUT 75CC. F/C INTACT TO DRAINAGE BAG VIA GRAVITY WITH CRISTA COLORED URINE. SAFETY MEASURE IN PLACE, BED IN LOWEST AND LOCKED POSITION, SIDE RAILS UP X2, CALL LIGHT PLACED WITHIN EASY REACH. WILL ENDORSED TO NEXT SHIFT.
[2021-11-17 07:34] LABS: ALANINE AMINOTRANSFERASE 109 U/L (12-78); ALBUMIN 1.9 g/dL (3.4-5.0); ALKALINE PHOSPHATASE 286 U/L (46-116); ASPARTATE AMINOTRANSFERASE 54 U/L (15-37); BILIRUBIN,TOTAL 0.8 mg/dL (0.2-1.0); CALCIUM, SERUM 8.3 mg/dL (8.5-10.1); CARBON DIOXIDE 26 mmol/L (21-32); CHLORIDE 103 mmol/L (98-107); CREATININE 1.3 mg/dL (0.6-1.3); GLUCOSE 161 mg/dL (74-106); POTASSIUM 4.2 mmol/L (3.5-5.1); SODIUM SERUM 136 mmol/L (136-145); TOTAL PROTEIN, SERUM 6.2 g/dL (6.4-8.2); UREA NITROGEN, BLOOD 32 mg/dL (7-18)
[2021-11-17 08:00] VITALS: BP 100/51
[2021-11-17] MEDS: hydrALAZINE HCL 25 MG TABLET PO SCH ×3 (09:00→17:00)
[2021-11-17] MEDS: AMLODIPINE BESYLATE 10 MG TABLET PO SCH (09:00)
[2021-11-17] MEDS: TAMSULOSIN 0.4 MG CAP.SR.24H PO SCH (09:22)
[2021-11-17] MEDS: FAMOTIDINE (20 MG) 20 MG TABLET PO SCH ×2 (09:22→17:17)
[2021-11-17 16:00] VITALS: BP 101/54
[2021-11-17 20:00] VITALS: BP 96/47
[2021-11-18] MEDS: PIPERACILLIN /TAZOBACTAM 3.375 G in IV D5W 100 ML IV SCH ×3 (02:18→17:14)
[2021-11-18 06:36] LABS: BASOPHILS % (AUTO) 0.1 % (0.0-2.0); EOSINOPHILS % (AUTO) 1.1 % (0.0-6.0); HEMATOCRIT 27 % (39-51); HEMOGLOBIN 9.3 g/dL (13.5-17.5); LYMPHOCYTES # (AUTO) 1.2 K/uL (0.8-4.8); LYMPHOCYTES % (AUTO) 10.2 % (20.0-44.0); MEAN CORPUSCULAR HGB CONC 34 g/dl (31.0-36.0); MEAN CORPUSCULAR VOLUME 90 fL (80-96); MONOCYTES % (AUTO) 8.4 % (2.0-12.0); NEUTROPHILS # (AUTO) 9.4 K/uL (1.8-8.9); NEUTROPHILS % (AUTO) 80.2 % (43.0-81.0); PLATELET COUNT (AUTO) 178 K/uL (150-450); RED BLOOD CELL COUNT(AUTO) 3.03 MIL/uL (4.5-6.0); WHITE BLOOD COUNT (AUTO) 11.7 K/uL (4.3-11.0)
--- NOTE | 2021-11-18 06:44 | NUR ---
MS/TELE/RN AT BEGINNING OF SHIFT AT 1930, PATIENT WAS IN BED AWAKE, ALERT, ORIENTED, NO C/O PAIN, NO DISTRESS NOTED, CALL LIGHT WITHIN REACH. NOTED TO HAVE A GOOD SLEEP DURING THE SHIFT. PRESENTLY, PATIENT IS AWAKE, NO C/O PAIN, NO SIGNS OF DISTRESS NOTED, ALL NEEDS ATTENDED AT THIS TIME, WILL CONTINUE TO MONITOR.
--- NOTE | 2021-11-18 07:00 | NUR ---
MS RN OPENING NOTES PATIENT LAYING IN BED A/O X 4, ABLE TO MAKE NEEDS KNOWN. TOLERATING WELL ON ROOM AIR WITH NO S/S RESPIRATORY DISTRESS. NO COMPLAINTS OF PAIN OR DISCOMFORT AT THIS TIME. GARCÍA CATHETER IN PLACE DRAINING CLEAR YELLOW URINE TO GRAVITY. JAIMIE DRAIN IN PLACE DRAINING SANGUINOUS FLUID TO NEGATIVE PRESSURE. SAFETY MEASURES IN PLACE: BED IN LOWEST LOCKED POSITION, SIDE RAILS UP X2, CALL LIGHT WITHIN REACH. WILL CONTINUE TO MONITOR.
[2021-11-18 07:07] LABS: CALCIUM, SERUM 7.9 mg/dL (8.5-10.1); CREATININE 1.1 mg/dL (0.6-1.3); POTASSIUM 3.6 mmol/L (3.5-5.1)
[2021-11-18] MEDS: hydrALAZINE HCL 25 MG TABLET PO SCH ×3 (08:48→16:33)
[2021-11-18] MEDS: AMLODIPINE BESYLATE 10 MG TABLET PO SCH (08:48)
[2021-11-18] MEDS: TAMSULOSIN 0.4 MG CAP.SR.24H PO SCH (08:57)
[2021-11-18] MEDS: FAMOTIDINE (20 MG) 20 MG TABLET PO SCH ×2 (08:57→16:32)
[2021-11-18] MEDS: APIXABAN 5 MG TABLET PO SCH ×2 (09:42→16:31)
--- NOTE | 2021-11-18 19:37 | NUR ---
RN OPENING NOTES RECEIVED PT IN BED, ASLEEP, AWAKENS TO VERBAL STIMULI. AOx3. ON RA AND TOLERATING WELL. NO SOB NOTED. NO S/SX OF RESPIRATORY DISTRESS NOTED. IV ACCESS IN RFA #20. IV IS INTACT, PATENT, AND FLUSHING WELL. SAFETY PRECAUTIONS IN PLACE: BED IN LOWEST, LOCKED POSITION, SIDERAILS UPx2, AND BRAKES ON. TABLE AND CALL LIGHT WITHIN REACH. WILL CONTINUE TO MONITOR.
[2021-11-18 20:20] VITALS: BP 100/57
[2021-11-19] MEDS: PIPERACILLIN /TAZOBACTAM 3.375 G in IV D5W 100 ML IV SCH ×3 (02:49→17:11)
--- NOTE | 2021-11-19 06:51 | NUR ---
RN CLOSING NOTES PT IN BED, ASLEEP, AWAKENS TO VERBAL STIMULI. AOx3. ON RA AND TOLERATING WELL. NO SOB NOTED. NO S/SX OF RESPIRATORY DISTRESS NOTED. IV ACCESS IN RFA #20. IV IS INTACT, PATENT, AND FLUSHING WELL. ALL ORDERS CARRIED OUT. ALL NEEDS MET. PT KEPT CLEAN AND DRY. SAFETY PRECAUTIONS IN PLACE: BED IN LOWEST, LOCKED POSITION, SIDERAILS UPx2, AND BRAKES ON. TABLE AND CALL LIGHT WITHIN REACH. WILL ENDORSE TO ONCOMING SHIFT FOR SOPHIA.
[2021-11-19 07:04] LABS: BASOPHILS % (AUTO) 0.2 % (0.0-2.0); EOSINOPHILS % (AUTO) 2.3 % (0.0-6.0); HEMATOCRIT 28 % (39-51); HEMOGLOBIN 9.7 g/dL (13.5-17.5); LYMPHOCYTES # (AUTO) 1.6 K/uL (0.8-4.8); LYMPHOCYTES % (AUTO) 13.5 % (20.0-44.0); MEAN CORPUSCULAR HGB CONC 35 g/dl (31.0-36.0); MEAN CORPUSCULAR VOLUME 89 fL (80-96); MONOCYTES # (AUTO) 1.2 K/uL (0.1-1.30); MONOCYTES % (AUTO) 9.6 % (2.0-12.0); NEUTROPHILS % (AUTO) 74.4 % (43.0-81.0); PLATELET COUNT (AUTO) 210 K/uL (150-450); RED BLOOD CELL COUNT(AUTO) 3.11 MIL/uL (4.5-6.0); WHITE BLOOD COUNT (AUTO) 12.1 K/uL (4.3-11.0)
[2021-11-19 07:53] LABS: CALCIUM, SERUM 7.9 mg/dL (8.5-10.1); CREATININE 1.1 mg/dL (0.6-1.3); POTASSIUM 3.8 mmol/L (3.5-5.1)
--- NOTE | 2021-11-19 08:05 | NUR ---
RN OPENING NOTE PATIENT RECEIVED IN BED, AO X 3-4, ABLE TO RESPONDS ALL STIMULI. IN NO ACUTE DISTRESS NOTED. RESPIRATORY EVEN AND UNLABORED ON ROOM AIR. SKIN IS WARM TO TOUCH, KEEP CLEAN/DRY. KEPT ELEVATED HOB FOR ENSURE AIRWAY AND ASPIRATION PRECAUTION, ALSO LOWEST POSITION OF THE BED, S/R UP X 3, BED ALARM IS ON AT ALL THE TIMES. ALL SAFETY PRECAUTION APPLIED. CALL LIGHT WITHIN REACH, WILL CONTINUE TO MONITOR.
[2021-11-19] MEDS: TAMSULOSIN 0.4 MG CAP.SR.24H PO SCH (08:26)
[2021-11-19] MEDS: FAMOTIDINE (20 MG) 20 MG TABLET PO SCH ×2 (08:26→17:06)
[2021-11-19] MEDS: APIXABAN 5 MG TABLET PO SCH ×2 (08:27→17:06)
[2021-11-19] MEDS: AMLODIPINE BESYLATE 10 MG TABLET PO SCH (08:30)
[2021-11-19] MEDS: hydrALAZINE HCL 25 MG TABLET PO SCH ×3 (08:30→17:00)
--- NOTE | 2021-11-19 08:30 | NUR ---
PATIENT BP AND HR IS LOW IN THIS MORNING AND HELD BP MEDS.
--- NOTE | 2021-11-19 13:00 | NUR ---
PATIENT BP-103/45, P-51. HELD HYDRALAZINE.
--- NOTE | 2021-11-19 18:52 | NUR ---
RN CLOSING NOTE PATIENT IN BED SLEEPING, AO X 3, CONFUSE OCCASIONALLY. IN NO ACUTE DISTRESS NOTED. RESPIRATORY EVEN AND UNLABORED ON ROOM AIR. SKIN IS WARM TO TOUCH, KEEP CLEAN/DRY. KEPT ELEVATED HOB FOR ENSURE AIRWAY AND ASPIRATION PRECAUTION, BED IN LOWEST POSITION AND LOCK. BED ALARM IS ON AT ALL THE TIMES. SAFETY MEASURED IN PLACED. CALL LIGHT WITHIN REACH, WILL ENDORSED TO NEXT SHIFT.
--- NOTE | 2021-11-19 19:35 | NUR ---
MS RN OPENING NOTE PATIENT AWAKE IN BED, ALERT/ORIENTED X 3 WITH SOME APHASIA D/T HX OF CVA, PT ABLE TO MAKE NEEDS KNOWN. PT STABLE ON RA, NO S/S OF DISTRESS OR SOB NOTED, BREATHING EVEN AND UNLABORED. IV ACCESS ON RIGHT FOREARM #20G INTACT AND SALINE LOCKED. GARCÍA CATH IN PLACE AND DRAINING YELLOW URINE. SAFETY MEASURES IN PLACE: CALL LIGHT WITHIN REACH, SIDE RAILS UP X 3, BED LOCKED IN LOWEST POSITION, BED ALARM ON. WILL CONTINUE TO MONITOR PATIENT
[2021-11-20] MEDS ORDERED: PIPERACILLIN /TAZOBACTAM 3.375 G VIAL IV ONE (02:29)
[2021-11-20] MEDS: PIPERACILLIN /TAZOBACTAM 3.375 G in IV D5W 100 ML IV SCH ×2 (02:34→11:09)
[2021-11-20 06:24] LABS: BASOPHILS % (AUTO) 0.4 % (0.0-2.0); EOSINOPHILS % (AUTO) 2.7 % (0.0-6.0); HEMATOCRIT 29 % (39-51); HEMOGLOBIN 10.1 g/dL (13.5-17.5); LYMPHOCYTES # (AUTO) 1.6 K/uL (0.8-4.8); LYMPHOCYTES % (AUTO) 14.4 % (20.0-44.0); MEAN CORPUSCULAR HGB CONC 35 g/dl (31.0-36.0); MEAN CORPUSCULAR VOLUME 89 fL (80-96); MONOCYTES # (AUTO) 0.9 K/uL (0.1-1.30); MONOCYTES % (AUTO) 8.6 % (2.0-12.0); NEUTROPHILS % (AUTO) 73.9 % (43.0-81.0); PLATELET COUNT (AUTO) 230 K/uL (150-450); RED BLOOD CELL COUNT(AUTO) 3.21 MIL/uL (4.5-6.0); WHITE BLOOD COUNT (AUTO) 10.9 K/uL (4.3-11.0)
--- NOTE | 2021-11-20 07:31 | NUR ---
MS RN CLOSING NOTE PATIENT SLEEPING IN BED, ALERT/ORIENTED X 3 WITH SOME APHASIA D/T HX OF CVA, PT ABLE TO MAKE NEEDS KNOWN. PT STABLE ON RA, NO S/S OF DISTRESS OR SOB NOTED, BREATHING EVEN AND UNLABORED. IV ACCESS ON RIGHT FOREARM #20G INTACT AND SALINE LOCKED. GARCÍA CATH IN PLACE AND DRAINING YELLOW URINE. MEDICATIONS GIVEN ORDERED, PT NEEDS MET THROUGHOUT SHIFT. SAFETY MEASURES IN PLACE: CALL LIGHT WITHIN REACH, SIDE RAILS UP X 3, BED LOCKED IN LOWEST POSITION, BED ALARM ON. ENDORSED TO DAY SHIFT NURSE FOR CONTINUITY OF CARE
--- NOTE | 2021-11-20 07:45 | NUR ---
RN OPENING NOTE PATIENT RECEIVED AWAKE; A/OX3. OBSERVED TO HAVE SLIGHT APHASIA, HOWEVER NO S/SX OF DISTRESS. NO C/O PAIN OR SOB. IV ACCESS TO RFA REMAINS IN PLACE AND PATENT. GARCÍA CATHETER ALSO INTACT AND FLOWING WELL. SAFETY MEASURES IN PLACE WITH BED AT LOWEST POSITION AND LOCKED. SIDERAILS UP X2 WITH CALL LIGHT WITHIN REACH. WILL CONTINUE TO MONITOR
[2021-11-20 08:00] VITALS: BP 131/83
[2021-11-20 09:24] LABS: CALCIUM, SERUM 7.9 mg/dL (8.5-10.1); POTASSIUM 3.8 mmol/L (3.5-5.1)
[2021-11-20 09:27] VITALS: BP 131/81
[2021-11-20] MEDS: AMLODIPINE BESYLATE 10 MG TABLET PO SCH (09:27)
[2021-11-20] MEDS: TAMSULOSIN 0.4 MG CAP.SR.24H PO SCH (09:27)
[2021-11-20] MEDS: FAMOTIDINE (20 MG) 20 MG TABLET PO SCH (09:27)
[2021-11-20] MEDS: APIXABAN 5 MG TABLET PO SCH (09:29)
--- NOTE | 2021-11-20 18:45 | NUR ---
RN MS NOTES PT IN BED, AWAKE, ALERT AND ABLE TO MAKE NEEDS KNOWN, NO COMPLAINT OF PAIN, RESPIRATIONS NORMAL, SEEN BY DR. MARTEL TODAY, DISCHARGE ORDER GIVEN, DISCHARGE AND MEDICATION INSTRUCTIONS PROVIDED TO PT, VERBALIZED UNDERSTANDING, NO BELONGINGS, SKIN ASSESSMENT AND PHOTOS DONE, REPORT GIVEN TO PRAVEENA OF [facility]. PICKED UP BY 2 AMBULANCE PERSONNEL, LEFT VIA [facility] IN STABLE CONDITION.
== END 2021-11-20 18:55 | DRG 418 ==
LOC: ER 19:43 → TRANSITION 23:35 → MED 11-12 11:49
PROVIDERS: ADMIT Student in an Organized Health Care Education/Training Program; ATTEND Student in an Organized Health Care Education/Training Program
PROC: 0FT44ZZ Resection of Gallbladder, Percutaneous Endoscopic Approach (ICD-10-PCS; principal; 2021-11-16)
DX: K80.00 Calculus of gallbladder with acute cholecystitis without obstruction (principal); D68.59 Other primary thrombophilia; E44.1 Mild protein-calorie malnutrition; N39.0 Urinary tract infection, site not specified; I31.3 Pericardial effusion (noninflammatory); J90 Pleural effusion, not elsewhere classified; J98.11 Atelectasis; K82.A1 Gangrene of gallbladder in cholecystitis; Z86.73 Personal history of transient ischemic attack (TIA), and cerebral infarction without residual deficits; E86.0 Dehydration; E11.9 Type 2 diabetes mellitus without complications; E78.5 Hyperlipidemia, unspecified; E87.6 Hypokalemia; F03.90 Unspecified dementia, unspecified severity, without behavioral disturbance, psychotic disturbance, mood disturbance, and anxiety; I10 Essential (primary) hypertension; N40.0 Benign prostatic hyperplasia without lower urinary tract symptoms; Z66 Do not resuscitate
CPT/HCPCS: 36415; 70450-TC; 71045-TC; 74181-TC; 76700-TC; 78226; 80048-TC; 80053-TC; 80076-TC; 81001; 82140-TC; 82962-TC; 83605-TC; 83735-TC; 84100-TC; 84443-TC; 84484-TC; 85025-TC; 85730-TC; 87040-TC; 87081-TC; 87086-TC; 93307-TC; 94799-TC; 97112-TC; 97530-TC; A9537; A9563; C9803; G0378; J0690; J1170; J2250; J2270; J2405; J2543; J2704; J2765; J3010; J3370; J3480; J3490; J7030; J7050; J7060

== ENCOUNTER 2022-02-05 15:58 | Emergency (ER) | payer MEDICARE, BC ==
[~2022-02-05] VITALS: Ht 177.8 cm; Wt 90.3 kg
[~2022-02-05 15:58] MED LIST: AMLO-213 PO; APIX5TAB PO; CYAN-51 PO; FAMO20TA8 PO; MULT-447 PO; SENN-261 PO; TAMS-12 PO
[2022-02-05] MEDS ORDERED: LIDOCAINE 2% JEL UROJET 10 ML MM ONE (16:25)
--- NOTE | 2022-02-05 16:40 | NUR ---
GARCÍA CATH FR16 INSERTED; ABLE TO DRAIN URINE OF YELLOW COLOR.
--- NOTE | 2022-02-05 16:46 | NUR ---
[facility] CALLED FOR BLS TRANSFER, ETA 75-90 MINS
--- NOTE | 2022-02-05 18:05 | NUR ---
Patient discharged back to [facility] via gurney, accompanied by 2 back wedger. Written and verbal after care instructions given. Patient verbalizes understanding of instruction.
[2022-02-05 18:17] VITALS: BP 118/65
== END 2022-02-05 18:19 ==
LOC: ER 17:28
DX: Z46.6 Encounter for fitting and adjustment of urinary device (principal); I10 Essential (primary) hypertension; Z79.899 Other long term (current) drug therapy
CPT/HCPCS: 99284; 51702; J3490

== ENCOUNTER 2023-12-11 17:46 | Inpatient (IN) | payer MEDICARE, BC ==
[~2023-12-11] VITALS: Ht 167.6 cm; Wt 83.4 kg
[2023-12-11] MEDS: IV NS 0.9% 1,000 ML BAG IV ONE ×2 (18:25→19:55)
[2023-12-11 18:31] LABS: BASOPHILS % (AUTO) 0.1 % (0.0-2.0); EOSINOPHILS % (AUTO) 0.3 % (0.0-6.0); HEMATOCRIT 43 % (39-51); HEMOGLOBIN 14.8 g/dL (13.5-17.5); LYMPHOCYTES # (AUTO) 0.3 K/uL (0.8-4.8); LYMPHOCYTES % (AUTO) 3.3 % (20.0-44.0); MEAN CORPUSCULAR HEMOGLOBIN 31 PG (26.0-33.0); MEAN CORPUSCULAR HGB CONC 35 g/dl (31.0-36.0); MEAN CORPUSCULAR VOLUME 89 fL (80-96); MONOCYTES # (AUTO) 0.1 K/uL (0.1-1.30); MONOCYTES % (AUTO) 0.7 % (2.0-12.0); NEUTROPHILS # (AUTO) 8.4 K/uL (1.8-8.9); NEUTROPHILS % (AUTO) 95.6 % (43.0-81.0); PLATELET COUNT (AUTO) 146 K/uL (150-450); RED BLOOD CELL COUNT(AUTO) 4.82 MIL/uL (4.5-6.0); RED CELL DISTRIBUTION WIDTH 13.4 % (11.5-15.0); WHITE BLOOD COUNT (AUTO) 8.7 K/uL (4.3-11.0)
[2023-12-11 18:35] LABS: CALCIUM, SERUM 8.6 mg/dL (8.5-10.1); CARBON DIOXIDE 25 mmol/L (21-32); CHLORIDE 94 mmol/L (98-107); CREATININE 1.5 mg/dL (0.6-1.3); GLUCOSE 136 mg/dL (74-106); POTASSIUM 3.6 mmol/L (3.5-5.1); SODIUM SERUM 126 mmol/L (136-145); UREA NITROGEN, BLOOD 19 mg/dL (7-18)
[2023-12-11 18:41] LABS: ALANINE AMINOTRANSFERASE 48 U/L (12-78); ALBUMIN 2.7 g/dL (3.4-5.0); ALKALINE PHOSPHATASE 124 U/L (46-116); ASPARTATE AMINOTRANSFERASE 57 U/L (15-37); BILIRUBIN,DIRECT 0.4 mg/dL (0.0-0.2); BILIRUBIN,TOTAL 1.1 mg/dL (0.2-1.0); LIPASE 40 U/L (16-77); TOTAL PROTEIN, SERUM 6.5 g/dL (6.4-8.2)
[2023-12-11 18:46] LABS: LACTIC ACID 3.9 mmol/L (0.4-2.0)
[2023-12-11] MEDS ORDERED: LIDOCAINE 2% JEL UROJET 10 ML MM ONE (19:13)
[2023-12-11] MEDS ORDERED: ACETAMINOPHEN 325 MG TABLET PO PRN (19:30)
[2023-12-11] MEDS ORDERED: Z GUARD REMEDY 4 OZ OINT TP PRN (19:30)
[2023-12-11] MEDS ORDERED: ZOLPIDEM TARTRATE 5 MG TABLET PO PRN (19:30)
[2023-12-11] MEDS ORDERED: ONDANSETRON HCL/PF 4 MG/2 ML VIAL IVP PRN (19:30)
[2023-12-11] MEDS ORDERED: MAG HYDROX/AL HYDROX/SIMETH 30 ML UDC PO PRN (19:30)
[2023-12-11] MEDS ORDERED: MAGNESIUM HYDROXIDE 30 ML UDC PO PRN (19:30)
[2023-12-11] MEDS: ACETAMINOPHEN 650 MG/SUPP.RECT RC ONE (20:09)
[2023-12-11] MEDS ORDERED: CEFEPIME 1 GM VIAL ONE (20:10)
[2023-12-11] MEDS: CEFEPIME 1 GM in IV D5W 50 ML IV ONE (20:15)
[2023-12-11 21:05] VITALS: BP 95/50; TEMP 98.4; O2SAT 95
[2023-12-11] MEDS: IV NS 0.9% 1,000 ML IV PRN (22:23)
[2023-12-11] MEDS ORDERED: LEVO75TA7 PO (23:46)
[2023-12-11] MEDS ORDERED: FERR-68 PO (23:46)
[2023-12-11] MEDS ORDERED: PSYL0.525 PO (23:46)
[2023-12-11] MEDS ORDERED: DOCU100C36 PO (23:46)
[2023-12-12 06:44] LABS: BASOPHILS % (AUTO) 0.1 % (0.0-2.0); HEMATOCRIT 35 % (39-51); HEMOGLOBIN 12.1 g/dL (13.5-17.5); LYMPHOCYTES # (AUTO) 0.5 K/uL (0.8-4.8); LYMPHOCYTES % (AUTO) 1.8 % (20.0-44.0); MEAN CORPUSCULAR HEMOGLOBIN 31 PG (26.0-33.0); MEAN CORPUSCULAR HGB CONC 34 g/dl (31.0-36.0); MEAN CORPUSCULAR VOLUME 90 fL (80-96); MONOCYTES # (AUTO) 2.1 K/uL (0.1-1.30); NEUTROPHILS # (AUTO) 23.2 K/uL (1.8-8.9); NEUTROPHILS % (AUTO) 90.1 % (43.0-81.0); PLATELET COUNT (AUTO) 112 K/uL (150-450); RED BLOOD CELL COUNT(AUTO) 3.95 MIL/uL (4.5-6.0); RED CELL DISTRIBUTION WIDTH 13.4 % (11.5-15.0); WHITE BLOOD COUNT (AUTO) 25.8 K/uL (4.3-11.0)
[2023-12-12 06:53] LABS: APPEARANCE,URINE SLIGHTLY CLOUDY (CLEAR); BILIRUBIN,URINE NEGATIVE (NEGATIVE); BLOOD, URINE 3+ Ery/uL (NEGATIVE); COLOR,URINE YELLOW (YELLOW); KETONES,URINE NEGATIVE (NEGATIVE); LEUKOCYTE ESTERASE ,URINE 3+ (NEGATIVE); NITRITE, URINE NEGATIVE (NEGATIVE); PROTEIN,URINE TRACE mg/dl (NEGATIVE); UGLUCOSE NEGATIVE (NEGATIVE); UROBILINOGEN,URINE 0.2 EU/dL (0.2)
[2023-12-12 07:05] LABS: LACTIC ACID 2.5 mmol/L (0.4-2.0)
[2023-12-12 07:55] LABS: ALANINE AMINOTRANSFERASE 37 U/L (12-78); ALKALINE PHOSPHATASE 97 U/L (46-116); ASPARTATE AMINOTRANSFERASE 31 U/L (15-37); BILIRUBIN,DIRECT 0.1 mg/dL (0.0-0.2); BILIRUBIN,TOTAL 0.6 mg/dL (0.2-1.0); CALCIUM, SERUM 7.9 mg/dL (8.5-10.1); CARBON DIOXIDE 24 mmol/L (21-32); CHLORIDE 99 mmol/L (98-107); CREATININE 1.4 mg/dL (0.6-1.3); GLUCOSE 104 mg/dL (74-106); MAGNESIUM 1.7 mg/dL (1.8-2.4); PHOSPHORUS 3.5 mg/dL (2.5-4.9); SODIUM SERUM 132 mmol/L (136-145); TOTAL PROTEIN, SERUM 5.5 g/dL (6.4-8.2); UREA NITROGEN, BLOOD 23 mg/dL (7-18)
[2023-12-12 08:08] LABS: ADD URINE CULTURE YES; BACTERIA,URINE Moderate /HPF (None Seen); SQUAMOUS EPITHELIAL CELL,UR Few /HPF (None Seen); WBC,URINE 21-50 /HPF (0-3)
[2023-12-12] MEDS: PANTOPRAZOLE 40 MG TABLET.DR PO SCH (08:29)
[2023-12-12] MEDS: CEFEPIME 1 GM in IV D5W 50 ML IV SCH (08:30)
[2023-12-12] MEDS: MAGNESIUM OXIDE 400 MG TABLET PO ONE (09:22)
[2023-12-12] MEDS: DOCUSATE SODIUM 100 MG CAPSULE PO SCH (11:12)
[2023-12-12] MEDS: LEVOTHYROXINE SODIUM 75 MCG TABLET PO SCH (11:13)
[2023-12-12] MEDS: FERROUS SULFATE (325 MG) 325 MG/TAB TABLET PO SCH (11:13)
[2023-12-12 16:00] VITALS: BP 100/60; TEMP 97.9; O2SAT 97
[2023-12-12 20:00] VITALS: BP 96/51; TEMP 97.8; O2SAT 98
[2023-12-12] MEDS: SENNOSIDES 8.6 MG TABLET PO SCH (22:05)
[2023-12-13 05:09] VITALS: O2SAT 98
[2023-12-13 06:54] LABS: BASOPHILS % (AUTO) 0.2 % (0.0-2.0); EOSINOPHILS # (AUTO) 0.4 K/uL (0.0-0.7); EOSINOPHILS % (AUTO) 2.5 % (0.0-6.0); HEMATOCRIT 31 % (39-51); HEMOGLOBIN 10.9 g/dL (13.5-17.5); LYMPHOCYTES # (AUTO) 0.6 K/uL (0.8-4.8); LYMPHOCYTES % (AUTO) 4.4 % (20.0-44.0); MEAN CORPUSCULAR HEMOGLOBIN 31 PG (26.0-33.0); MEAN CORPUSCULAR HGB CONC 35 g/dl (31.0-36.0); MEAN CORPUSCULAR VOLUME 89 fL (80-96); NEUTROPHILS # (AUTO) 12.4 K/uL (1.8-8.9); NEUTROPHILS % (AUTO) 85.9 % (43.0-81.0); PLATELET COUNT (AUTO) 82 K/uL (150-450); RED BLOOD CELL COUNT(AUTO) 3.47 MIL/uL (4.5-6.0); RED CELL DISTRIBUTION WIDTH 13.4 % (11.5-15.0); WHITE BLOOD COUNT (AUTO) 14.4 K/uL (4.3-11.0)
[2023-12-13 07:00] VITALS: BP 105/67; TEMP 98.4; O2SAT 98
[2023-12-13 07:09] LABS: ALANINE AMINOTRANSFERASE 31 U/L (12-78); ALBUMIN 1.8 g/dL (3.4-5.0); ALKALINE PHOSPHATASE 100 U/L (46-116); ASPARTATE AMINOTRANSFERASE 36 U/L (15-37); BILIRUBIN,TOTAL 0.5 mg/dL (0.2-1.0); CARBON DIOXIDE 25 mmol/L (21-32); CHLORIDE 103 mmol/L (98-107); CREATININE 1.2 mg/dL (0.6-1.3); GLUCOSE 81 mg/dL (74-106); MAGNESIUM 1.9 mg/dL (1.8-2.4); PHOSPHORUS 2.1 mg/dL (2.5-4.9); POTASSIUM 3.5 mmol/L (3.5-5.1); SODIUM SERUM 134 mmol/L (136-145); TOTAL PROTEIN, SERUM 5.2 g/dL (6.4-8.2); UREA NITROGEN, BLOOD 28 mg/dL (7-18)
[2023-12-13 07:25] LABS: CREATINE KINASE, TOTAL 28 U/L (39-308)
[2023-12-13] MEDS: TAMSULOSIN 0.4 MG CAP.SR.24H PO SCH (08:36)
[2023-12-13] MEDS: PSYLLIUM SEED 1 PKT PACKET PO SCH (08:37)
[2023-12-13 11:02] LABS: ANISOCYTOSIS 1+; BAND % (MANUAL) 4 % (0.0-5.0); BASOPHILS % (MANUAL) 0 % (0.0-2.0); EOSINOPHILS % (MANUAL) 2 % (0-4); LYMPHOCYTES % (MANUAL) 9 % (16-48); MONOCYTES % (MANUAL) 3 % (0-11.0); NEUTROPHILS % (MANUAL) 82 (42-76); PLATELET ESTIMATE DECREASED
[2023-12-13 16:00] VITALS: BP 105/49; TEMP 98.8; O2SAT 99
[2023-12-13] MEDS: K PHOS NEUTRAL 250 MG TABLET PO ONE (16:09)
[2023-12-13] MEDS: ENSURE ENLIVE 237 ML LIQUID (VANILLA) PO SCH (17:06)
[2023-12-13 20:18] VITALS: BP 98/55; TEMP 99; O2SAT 97
[2023-12-13 23:19] VITALS: BP 98/55; TEMP 99; O2SAT 97
[2023-12-14 05:33] VITALS: O2SAT 98
[2023-12-14 07:00] VITALS: BP 107/54; TEMP 97.9; O2SAT 96
[2023-12-14 08:00] VITALS: BP 105/48; TEMP 98.6; O2SAT 98
[2023-12-14] MEDS: NEUTRA PHOS 1 POWD.PACKET PO ONE (09:21)
[2023-12-14 16:00] VITALS: BP 109/52; TEMP 98.6; O2SAT 98
[2023-12-14] MEDS: APIXABAN 5 MG TABLET PO SCH (16:04)
[2023-12-15 07:46] LABS: BASOPHILS % (AUTO) 0.4 % (0.0-2.0); CALCIUM, SERUM 8.2 mg/dL (8.5-10.1); CARBON DIOXIDE 26 mmol/L (21-32); CHLORIDE 110 mmol/L (98-107); EOSINOPHILS # (AUTO) 0.7 K/uL (0.0-0.7); EOSINOPHILS % (AUTO) 7.4 % (0.0-6.0); GLUCOSE 87 mg/dL (74-106); HEMATOCRIT 33 % (39-51); HEMOGLOBIN 11.3 g/dL (13.5-17.5); LYMPHOCYTES # (AUTO) 0.8 K/uL (0.8-4.8); LYMPHOCYTES % (AUTO) 8.4 % (20.0-44.0); MEAN CORPUSCULAR HEMOGLOBIN 31 PG (26.0-33.0); MEAN CORPUSCULAR HGB CONC 34 g/dl (31.0-36.0); MEAN CORPUSCULAR VOLUME 91 fL (80-96); MONOCYTES # (AUTO) 0.9 K/uL (0.1-1.30); MONOCYTES % (AUTO) 10.1 % (2.0-12.0); NEUTROPHILS # (AUTO) 6.8 K/uL (1.8-8.9); NEUTROPHILS % (AUTO) 73.7 % (43.0-81.0); PLATELET COUNT (AUTO) 113 K/uL (150-450); POTASSIUM 4.5 mmol/L (3.5-5.1); RED BLOOD CELL COUNT(AUTO) 3.62 MIL/uL (4.5-6.0); RED CELL DISTRIBUTION WIDTH 13.8 % (11.5-15.0); SODIUM SERUM 142 mmol/L (136-145); UREA NITROGEN, BLOOD 17 mg/dL (7-18); WHITE BLOOD COUNT (AUTO) 9.2 K/uL (4.3-11.0)
[2023-12-15 08:00] VITALS: BP 108/45; TEMP 98.4; O2SAT 99
[2023-12-15 11:49] VITALS: O2SAT 94
[2023-12-15] MEDS: FERROUS SULFATE (325 MG) 325 MG/TAB TABLET PO SCH (14:26)
[2023-12-15 20:00] VITALS: BP 121/56; TEMP 98.4; O2SAT 97
[2023-12-15] MEDS ORDERED: CEFTRIAXONE 1GM BAG (ER ONLY) 50 ML IV ONE (21:38)
[2023-12-15] MEDS: CEFTRIAXONE 1 G in IV D5W 50 ML IV SCH (21:44)
[2023-12-16 05:08] LABS: *SPE A/G RATIO 0.9 (0.7-1.7); *SPE ALBUMIN 2.2 g/dL (2.9-4.4); *SPE ALPHA-1-GLOBULIN 0.3 g/dL (0.0-0.4); *SPE ALPHA-2-GLOBULIN 0.7 g/dL (0.4-1.0); *SPE BETA GLOBULIN 0.7 g/dL (0.7-1.3); *SPE GLOBULIN, TOTAL 2.5 g/dL (2.2-3.9); *SPE M-SPIKE 0.1 g/dL (Not Observed); *SPE PROTEIN TOTAL 4.7 g/dL (6.0-8.5); *SPEGAMMA GLOBULIN 0.8 g/dL (0.4-1.8)
[2023-12-16 08:00] VITALS: BP 131/60; TEMP 98.8; O2SAT 96
[2023-12-16] MEDS ORDERED: CEFT1VIA15 IV (12:44)
== END 2023-12-16 16:45 | DRG 698 ==
LOC: ER 17:52 → MED 20:07
PROVIDERS: ADMIT Nurse Practitioner Family; ATTEND Student in an Organized Health Care Education/Training Program
DX: T83.83XA Hemorrhage due to genitourinary prosthetic devices, implants and grafts, initial encounter (principal); A41.51 Sepsis due to Escherichia coli [E. coli]; G92.8 Other toxic encephalopathy; E87.1 Hypo-osmolality and hyponatremia; N17.9 Acute kidney failure, unspecified; E87.20 Acidosis, unspecified; N13.8 Other obstructive and reflux uropathy; E44.0 Moderate protein-calorie malnutrition; N39.0 Urinary tract infection, site not specified; Y84.6 Urinary catheterization as the cause of abnormal reaction of the patient, or of later complication, without mention of misadventure at the time of the procedure; T83.021A Displacement of indwelling urethral catheter, initial encounter; I48.91 Unspecified atrial fibrillation; Z86.73 Personal history of transient ischemic attack (TIA), and cerebral infarction without residual deficits; D64.9 Anemia, unspecified; E11.9 Type 2 diabetes mellitus without complications; E78.5 Hyperlipidemia, unspecified; E83.39 Other disorders of phosphorus metabolism; E86.1 Hypovolemia; E88.09 Other disorders of plasma-protein metabolism, not elsewhere classified; I10 Essential (primary) hypertension; I48.0 Paroxysmal atrial fibrillation; M89.8X9 Other specified disorders of bone, unspecified site; Z66 Do not resuscitate; Z79.01 Long term (current) use of anticoagulants; Z87.440 Personal history of urinary (tract) infections; N40.1 Benign prostatic hyperplasia with lower urinary tract symptoms; F03.90 Unspecified dementia, unspecified severity, without behavioral disturbance, psychotic disturbance, mood disturbance, and anxiety; R22.1 Localized swelling, mass and lump, neck; L90.5 Scar conditions and fibrosis of skin; Y73.8 Miscellaneous gastroenterology and urology devices associated with adverse incidents, not elsewhere classified; Y92.89 Other specified places as the place of occurrence of the external cause; R33.8 Other retention of urine; N36.8 Other specified disorders of urethra; Z51.5 Encounter for palliative care; R31.0 Gross hematuria; Y92.129 Unspecified place in nursing home as the place of occurrence of the external cause
CPT/HCPCS: 36415; 71045-TC; 76770-TC; 80048-TC; 80053-TC; 80076-TC; 81001; 82550-TC; 82607-TC; 82962-TC; 83605-TC; 83690-TC; 83735-TC; 83970; 84100-TC; 84155; 84165; 84443-TC; 85025-TC; 87040-TC; 87081-TC; 87086-TC; 87186-TC; 93307-TC; 94799-TC; 97110-TC; 97112-TC; 97530-TC; A4217; A4223; G0378; J0692; J0696; J3490; J7030; J7060

== ENCOUNTER 2023-12-19 21:54 | Inpatient (IN) | payer MEDICARE, BC ==
[~2023-12-19] VITALS: Ht 177.8 cm; Wt 82.6 kg
[~2023-12-19 21:54] MED LIST changes: -AMLO-213 PO; +CEFT1VIA15 IV; -CYAN-51 PO; +DOCU100C36 PO; -FAMO20TA8 PO; +FERR-68 PO; +LEVO75TA7 PO; -MULT-447 PO; +PSYL0.525 PO
[2023-12-19 22:35] LABS: BASOPHILS # (AUTO) 0.1 K/uL (0.0-0.2); BASOPHILS % (AUTO) 0.6 % (0.0-2.0); EOSINOPHILS # (AUTO) 0.5 K/uL (0.0-0.7); EOSINOPHILS % (AUTO) 4.9 % (0.0-6.0); HEMATOCRIT 33 % (39-51); HEMOGLOBIN 11.1 g/dL (13.5-17.5); LYMPHOCYTES # (AUTO) 1.7 K/uL (0.8-4.8); LYMPHOCYTES % (AUTO) 15.8 % (20.0-44.0); MEAN CORPUSCULAR HEMOGLOBIN 31 PG (26.0-33.0); MEAN CORPUSCULAR HGB CONC 34 g/dl (31.0-36.0); MEAN CORPUSCULAR VOLUME 91 fL (80-96); MONOCYTES # (AUTO) 0.9 K/uL (0.1-1.30); MONOCYTES % (AUTO) 7.9 % (2.0-12.0); NEUTROPHILS # (AUTO) 7.6 K/uL (1.8-8.9); NEUTROPHILS % (AUTO) 70.8 % (43.0-81.0); PLATELET COUNT (AUTO) 192 K/uL (150-450); RED BLOOD CELL COUNT(AUTO) 3.58 MIL/uL (4.5-6.0); RED CELL DISTRIBUTION WIDTH 13.6 % (11.5-15.0); WHITE BLOOD COUNT (AUTO) 10.8 K/uL (4.3-11.0)
[2023-12-19 22:45] LABS: CALCIUM, SERUM 7.9 mg/dL (8.5-10.1); CARBON DIOXIDE 30 mmol/L (21-32); CHLORIDE 105 mmol/L (98-107); GLUCOSE 115 mg/dL (74-106); POTASSIUM 4.1 mmol/L (3.5-5.1); SODIUM SERUM 139 mmol/L (136-145); UREA NITROGEN, BLOOD 23 mg/dL (7-18)
[2023-12-19 22:50] LABS: INR 1.05 (0.91-1.10); PARTIAL THROMBOPLASTIN TIME 28.5 SEC (24.3-34.3); PROTHROMBIN TIME 11.1 SECS (9.2-11.1)
[2023-12-19 22:57] LABS: ALANINE AMINOTRANSFERASE 44 U/L (12-78); ALBUMIN 1.9 g/dL (3.4-5.0); ALKALINE PHOSPHATASE 135 U/L (46-116); ASPARTATE AMINOTRANSFERASE 25 U/L (15-37); BILIRUBIN,DIRECT 0.1 mg/dL (0.0-0.2); BILIRUBIN,TOTAL 0.3 mg/dL (0.2-1.0); TOTAL PROTEIN, SERUM 5.7 g/dL (6.4-8.2)
[2023-12-19 23:33] LABS: APPEARANCE,URINE TURBID (CLEAR); BILIRUBIN,URINE 2+ (NEGATIVE); BLOOD, URINE 3+ Ery/uL (NEGATIVE); COLOR,URINE RED (YELLOW); KETONES,URINE 1+ mg/dL (NEGATIVE); LEUKOCYTE ESTERASE ,URINE 2+ (NEGATIVE); NITRITE, URINE POSITIVE (NEGATIVE); PROTEIN,URINE 3+ mg/dl (NEGATIVE); UGLUCOSE TRACE mg/dL (NEGATIVE)
[2023-12-20 00:13] LABS: ADD URINE CULTURE YES; BACTERIA,URINE Moderate /HPF (None Seen); RBC,URINE TOO NUMEROUS TO COUN /HPF (0-2); SQUAMOUS EPITHELIAL CELL,UR Few /HPF (None Seen)
[2023-12-20] MEDS ORDERED: MORPHINE SULFATE INJ 2 MG/ML DISP.SYRIN IV PRN (00:30)
[2023-12-20] MEDS ORDERED: hydrALAZINE HCL IV 20 MG VIAL IV PRN (00:30)
[2023-12-20] MEDS ORDERED: ONDANSETRON HCL/PF 4 MG/2 ML VIAL IVP PRN (00:30)
[2023-12-20] MEDS ORDERED: CEFEPIME 1 GM VIAL ONE (03:58)
[2023-12-20 04:00] VITALS: BP 118/53; TEMP 98.6; O2SAT 94
[2023-12-20 04:03] VITALS: BP 118/56; TEMP 98.6; O2SAT 94
[2023-12-20] MEDS: CEFEPIME 1 GM in IV D5W 50 ML IV ONE (04:25)
[2023-12-20 07:06] LABS: EOSINOPHILS % (MANUAL) 4 % (0-4); LYMPHOCYTES % (MANUAL) 16 % (16-48); MONOCYTES % (MANUAL) 9 % (0-11.0); NEUTROPHILS % (MANUAL) 71 (42-76); SMUDGE CELLS FEW
[2023-12-20 07:07] LABS: PLATELET ESTIMATE ADEQUATE
[2023-12-20 07:47] LABS: HEMOGLOBIN 11.3 g/dL (13.5-17.5)
[2023-12-20 08:00] VITALS: BP 126/63; TEMP 97.5; O2SAT 97
[2023-12-20] MEDS ORDERED: ASCO-340 PO (08:07)
[2023-12-20] MEDS ORDERED: ZINC1CAP3 PO (08:07)
[2023-12-20] MEDS ORDERED: AMIN30LI2 PO (08:07)
[2023-12-20] MEDS ORDERED: MULT-213 PO (08:07)
[2023-12-20] MEDS: APIXABAN 5 MG TABLET PO SCH (09:00)
[2023-12-20] MEDS: LEVOTHYROXINE SODIUM 75 MCG TABLET PO SCH (09:57)
[2023-12-20] MEDS: TAMSULOSIN 0.4 MG CAP.SR.24H PO SCH (09:57)
[2023-12-20] MEDS: ACETAMINOPHEN 325 MG TABLET PO PRN (11:22)
[2023-12-20 16:00] VITALS: BP 101/60; TEMP 98.1; O2SAT 98
[2023-12-20] MEDS: CEFEPIME 2 GM in IV D5W 100 ML IV SCH (17:23)
[2023-12-20 20:00] VITALS: BP_SYST 112; BP_SYST 121; BP_DIAS 50; TEMP 99.5; O2SAT 97
[2023-12-21 07:00] VITALS: BP 100/50; TEMP 98.4; O2SAT 100
[2023-12-21 16:00] VITALS: BP 96/47; TEMP 98.2; O2SAT 97
[2023-12-21 20:00] VITALS: BP 98/47; TEMP 98.2; O2SAT 97
[2023-12-22 07:22] LABS: BASOPHILS # (AUTO) 0.1 K/uL (0.0-0.2); BASOPHILS % (AUTO) 0.6 % (0.0-2.0); EOSINOPHILS # (AUTO) 0.6 K/uL (0.0-0.7); HEMATOCRIT 28 % (39-51); HEMOGLOBIN 9.8 g/dL (13.5-17.5); LYMPHOCYTES # (AUTO) 0.6 K/uL (0.8-4.8); LYMPHOCYTES % (AUTO) 7.2 % (20.0-44.0); MEAN CORPUSCULAR HEMOGLOBIN 32 PG (26.0-33.0); MEAN CORPUSCULAR HGB CONC 34 g/dl (31.0-36.0); MEAN CORPUSCULAR VOLUME 92 fL (80-96); MONOCYTES # (AUTO) 0.6 K/uL (0.1-1.30); MONOCYTES % (AUTO) 7.1 % (2.0-12.0); NEUTROPHILS % (AUTO) 78.1 % (43.0-81.0); PLATELET COUNT (AUTO) 203 K/uL (150-450); RED CELL DISTRIBUTION WIDTH 13.8 % (11.5-15.0)
[2023-12-22 07:37] LABS: CALCIUM, SERUM 8.3 mg/dL (8.5-10.1); CARBON DIOXIDE 24 mmol/L (21-32); CHLORIDE 106 mmol/L (98-107); GLUCOSE 110 mg/dL (74-106); POTASSIUM 4.3 mmol/L (3.5-5.1); SODIUM SERUM 138 mmol/L (136-145); UREA NITROGEN, BLOOD 21 mg/dL (7-18)
[2023-12-22 08:00] VITALS: BP 112/60; TEMP 97.7; O2SAT 97
[2023-12-22] MEDS ORDERED: APIX2.5T PO (10:21)
[2023-12-22] MEDS ORDERED: CEFT1VIA15 IV (10:21)
== END 2023-12-22 15:25 | DRG 689 ==
LOC: ER 22:00 → MED 12-20 03:07 → UNDODISIN 12-20 11:00
PROVIDERS: ADMIT Internal Medicine; ATTEND Internal Medicine
DX: N39.0 Urinary tract infection, site not specified (principal); E43 Unspecified severe protein-calorie malnutrition; G93.41 Metabolic encephalopathy; I48.0 Paroxysmal atrial fibrillation; F03.90 Unspecified dementia, unspecified severity, without behavioral disturbance, psychotic disturbance, mood disturbance, and anxiety; E11.9 Type 2 diabetes mellitus without complications; E03.9 Hypothyroidism, unspecified; E88.09 Other disorders of plasma-protein metabolism, not elsewhere classified; E78.5 Hyperlipidemia, unspecified; I10 Essential (primary) hypertension; Z79.01 Long term (current) use of anticoagulants; Z86.73 Personal history of transient ischemic attack (TIA), and cerebral infarction without residual deficits; B96.89 Other specified bacterial agents as the cause of diseases classified elsewhere; N40.1 Benign prostatic hyperplasia with lower urinary tract symptoms; R31.9 Hematuria, unspecified; Z68.26 Body mass index [BMI] 26.0-26.9, adult
CPT/HCPCS: 36415; 80048-TC; 80076-TC; 81001; 85025-TC; 85027-TC; 85730-TC; A4217; A4223; A6403; G0378; J0692; J7050; J7060